=== PATIENT | male | born 1960 | race Hispanic/Latino ===

== ENCOUNTER 2018-08-29 12:09 | Outpatient (CLI) | payer BC ==
--- NOTE | 2018-08-29 13:33 | XRay Report ---
ROUTINE CHEST, TWO VIEWS: HISTORY: Hypertension, history of smoking. The lungs may be mildly hyperinflated. No advanced emphysematous changes are detected. Heart size and pulmonary vessels are within normal limits. The lungs are clear. The bony thorax is intact. IMPRESSION: Essentially unremarkable chest films.
== END 2018-08-29 12:10 | disposition home or self-care (01) ==
LOC: CARD 12:09
PROVIDERS: ATTEND Internal Medicine
DX: I10 Essential (primary) hypertension (principal); Z87.891 Personal history of nicotine dependence; Z88.0 Allergy status to penicillin
CPT/HCPCS: 71046; 93005; 93010